=== PATIENT | male | born 2000 | race Caucasian/White ===

== ENCOUNTER 2022-09-15 11:37 | Emergency (ER) | payer MEDICAID, OTHER ==
[~2022-09-15] VITALS: Ht 175.3 cm; Wt 80.0 kg
[2022-09-15 11:52] VITALS: PULSE 82; RESP 18; TEMP 98.6
[2022-09-15] MEDS ORDERED: LIDOCAINE HCL/PF 1% 10 MG/ML 5ML VIAL INFIL ONE (12:45)
[2022-09-15] MEDS ORDERED: BACITRACIN ZINC OINT UDPKT TOP ONE (12:45)
[2022-09-15] MEDS ORDERED: IBUP-2029 PO (13:48)
== END 2022-09-15 14:19 | disposition home or self-care (01) ==
LOC: ER 11:58
DX: S61.217A Laceration without foreign body of left little finger without damage to nail, initial encounter (principal); X58.XXXA Exposure to other specified factors, initial encounter; Y93.9 Activity, unspecified; Y92.89 Other specified places as the place of occurrence of the external cause; Y99.8 Other external cause status
CPT/HCPCS: 12001; 99282; J3490; Z7610